=== PATIENT | male | born 1950 | race Caucasian/White ===

== ENCOUNTER 2017-09-14 01:40 | Observation (INO) | payer OTHER, BC ==
[~2017-09-14] VITALS: Ht 193 cm; Wt 100.5 kg
[2017-09-14 01:53] LABS: HEMATOCRIT 38.6 % (38.0-50.0); HEMOGLOBIN 13.3 G/DL (12.5-16.6); MCH 30.6 PG (29.0-34.0); MCHC 34.5 G/DL (30.0-36.0); MCV 88.9 FL (86-99); PLATELET COUNT 280 K/uL (156-360); RBC DIS.WIDTH-CV 12.5 % (11.8-14.6); RBC DIS.WIDTH-SD 40.8 % (39-53); RED BLOOD COUNT 4.34 M/uL (4.00-5.50); WHITE BLOOD COUNT 4.2 K/uL (4.1-10.2)
[2017-09-14 02:03] LABS: CHLORIDE 109 mEq/L (99-109); GLUCOSE 114 mg/dL (70-99); POTASSIUM 3.9 mEq/L (3.7-5.4); SODIUM 143 mEq/L (136-147)
[2017-09-14 02:07] LABS: CREATININE 0.9 mg/dL (0.6-1.3); GFR ESTIMATE (CALCULATED) > 59 mL/min/ (58.99-99999)
[2017-09-14 02:08] LABS: UREA NITROGEN (BUN) 25 mg/dL (9-23)
[2017-09-14 02:13] LABS: TROP-I INTERPRETATION NEGATIVE; TROPONIN-I < 0.01 ng/mL (0.0-0.30)
[2017-09-14 02:14] LABS: D-DIMER ELISA < 150.00 ng/mLDDU (<230)
[2017-09-14 04:18] VITALS: BP 138/79
[2017-09-14 07:41] VITALS: BP 129/74
[2017-09-14] MEDS ORDERED: LOW DOSE ASPIRI81 M1 PO (12:00)
[2017-09-14] MEDS ORDERED: OMEGA 3-6-9 CO400 MG PO (12:01)
[2017-09-14] MEDS ORDERED: VISION FORMULA1 EACH PO (12:04)
[2017-09-14] MEDS ORDERED: ONCE DAILY1 EACH PO (12:04)
[2017-09-14] MEDS ORDERED: SAW PALMETTO160 MG PO (12:05)
[2017-09-14] MEDS ORDERED: GLUCOSAMINE CH1 EAC4 PO (12:05)
[2017-09-14 12:08] LABS: TROP-I INTERPRETATION NEGATIVE; TROPONIN-I < 0.01 ng/mL (0.0-0.30)
[2017-09-14 12:09] LABS: HDL CHOLESTEROL 50 MG/DL (Desirable>=40); LDL CHOLESTEROL 127 mg/dL (Desirable<100); NON-HDL CHOLESTEROL 138 mg/dL (Desirable<160); TOTAL CHOLESTEROL 188 mg/dL (Desirable<200); TRIGLYCERIDES 57 MG/DL (Normal: <150)
[2017-09-14 12:21] VITALS: BP 122/69
[2017-09-14 14:49] LABS: TROP-I INTERPRETATION NEGATIVE; TROPONIN-I < 0.01 ng/mL (0.0-0.30)
== END 2017-09-14 16:02 | disposition home or self-care (01) ==
LOC: EME → EDBD 01:40 → EME 01:40 → EDOF 03:19 → ENRESERV 03:27 → 5WEST 04:13
PROVIDERS: Hospitalist; Physician Assistant Medical
DX: R07.89 Other chest pain (principal); R94.31 Abnormal electrocardiogram [ECG] [EKG]; I45.19 Other right bundle-branch block; M79.602 Pain in left arm; M25.512 Pain in left shoulder; N40.0 Benign prostatic hyperplasia without lower urinary tract symptoms; I72.3 Aneurysm of iliac artery; Z87.891 Personal history of nicotine dependence; Z80.0 Family history of malignant neoplasm of digestive organs; Z80.3 Family history of malignant neoplasm of breast; Z82.0 Family history of epilepsy and other diseases of the nervous system; W01.0XXA Fall on same level from slipping, tripping and stumbling without subsequent striking against object, initial encounter; Y93.K1 Activity, walking an animal
CPT/HCPCS: 71046; 80048; 80061; 84484; 85027; 85379; 93005; G0378; J1644; J1885; J7030